=== PATIENT | female | born 1945 | race Caucasian/White ===

== ENCOUNTER 2017-12-31 08:30 | Outpatient (AMBR) | payer MEDICARE, MEDICAID, SELFPAY ==
--- NOTE | 2017-12-24 11:11 | PTNOTE_ITS ---
PT OP Initial Eval Patient Information Visit Reasons: left knee pain Medical Diagnosis: T84.84XA Z96.652 Treatment Dx #1: knee pain Start of Care: 12/24/17 Date of Onset: August 2017 Initial Assessment Subjective Pt is 72 yr old female who c/o L knee pain since bending down in August and hearing a loud pop. She reports the pain has been getting worse since then and she is wearing a knee brace. She walks limited distances 10' maximum. Pt lives with and can't do vacuuming, sweeping ADL's because of her back pain. 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 Pt is in bed 18-22 hours a day due to pain. PMH: smoker, OA everywhere, 4 CTS, trigger finger release, L knee TKA, R partial knee, heart palpitations Imaging: X-rays of knee negative Pt goal: to get my knee to not hurt when I walk or get out of bed. Objective L knee AROM: Flexion: 105 deg Extension: -5 deg SLR: 45 deg Strength: L quads 4-/5 limited by patella compression pain, hamstrings 4-/5 TTP: lateral joint line, lateral fat pad, inferior pole of patella Special testing: Anterior drawer: WNL Varus/valgus: slight gapping, no pain Patella compression: positive Squat: unable, stairs: unable KOS score: 56%, 100% is optimal Assessment Pt presents with pain about the lateral joint line and fat pad that may be consistent with ITB tenderness and myofascial pain. Ssx limit standing and walking tolerances along with squatting and bending. She spends most of the day in bed and isn't very active and it has been about 4 months since the pain started and is getting worse so pt may benefit from further diagnostic imaging if pain persists. Short Term and Mcfp Goals 1. Independent with HEP 2. Improved quad strength to 4+/5 3. Improved KOS score to 66% 4. Pt will ambulate x10' with <=4/10 knee pain. Treatment Plan 90 day POC in order to complete visits. Pt requires skilled therapy in order to increase strength, decrease pain and address aforementioned impairments. Rx may consist of Therex, Manual therapy, Neuromuscular re-education, Modalities as indicated-moist heat packs, ice packs, mechanical traction, estim Frequency and Duration 2x a week for 6 weeks Certification Dates: 12/24/17 to 03/24/18 Office Procedures PT Outpatient G-Codes Date of Service PT Date of Service: 12/24/17 G-Codes Walking & Moving Around Mobility Current Status G-Code: G8978: CK 40-60% Mobility Status G-Code: G8979: CJ 20-40% PT Procedures PT Date of Service: 12/24/17 OP PT Eval Mod Complex 30 minutes: Yes
--- NOTE | 2017-12-31 12:06 | PT.ODAYNRPT ---
PT Outpatient Daily Note Date of Service: December 31, 2017 OP Daily Note Visit Reasons: left knee pain Outpatient Physical Therapy Treatment Date: 12/31/17 Subjective: About the same as time of eval Objective: See F/S for therex MT: STM to distal L ITB x10' Assessment: High tissue irritability of distal ITB consistent with ITB friction syndrome. Plan: Continue per POC Length of Time (minutes) of Treatment: 30 Minutes Office Procedures PT Outpatient G-Codes Date of Service PT Date of Service: 12/24/17 G-Codes Walking & Moving Around Mobility Current Status G-Code: G8978: CK 40-60% Mobility Status G-Code: G8979: CJ 20-40% PT Procedures PT Date of Service: 12/24/17 OP PT Eval Mod Complex 30 minutes: Yes PT Procedures PT Date of Service: 12/31/17 Therapeutic Exercise 15 minutes: Yes Manual [employer] 15 minutes: Yes
== END 2017-12-31 09:30 | disposition home or self-care (01) ==
PROVIDERS: PCP Physician Assistant Medical; Referring Provider Physician Assistant Medical; Visit Provider Physician Assistant Medical
DX: I10 Essential (primary) hypertension (principal)
CPT/HCPCS: 97110; 97140; 97162; G8978; G8979

== ENCOUNTER 2018-01-09 08:30 | Outpatient (AMBR) | payer MEDICARE, MEDICAID, SELFPAY ==
--- NOTE | 2018-01-07 13:18 | PT.ODAYNRPT ---
PT Outpatient Daily Note Date of Service: January 07, 2018 OP Daily Note Visit Reasons: knee pain Outpatient Physical Therapy Treatment Date: 01/07/18 Subjective: Pt reports increased knee soreness after last visit. Today she points to the lateral hamstring tendon region as site of pain. Objective: See F/S for therex MT: STM of L lateral HS tendon region x5' Assessment: High tissue irritability of L distal HS tendon limits exercise and manual therapy tolerance. Plan: Continue per POC Length of Time (minutes) of Treatment: 30 Minutes Office Procedures PT Procedures PT Date of Service: 01/07/18 Therapeutic Exercise 30 minutes: Yes
--- NOTE | 2018-01-09 10:51 | PT.ODS1RPT ---
PT OP Progress/Discharge Note Date of Service: January 09, 2018 Progress Note/DC Note Progress Note/Discharge Note: DC Note Patient Information Visit Reasons: knee pain Medical Diagnosis: T84.84XA Z96.652 Service Continue Service or Discharge: Discharge Discharge Date: 01/09/18 Certification Date Certification Dates: 12/24-03/24/18 Status Subjective: Pt reports no change in knee ssx, just more pain after therapy visits. She continues to have high pain level in knee. Objective: L knee AROM: Flexion 105 deg Extension: -5 deg SLR: 45 deg TTP: distal ITB as it crosses joint line, ITB insertion, lateral hamstring tendon, pop fossa MT: STM to distal ITB x10' and hamstring tendon Assessment: Pt has attended 4/12 visits with limited progress with therapy goals. She has high tissue irritability of L distal HS tendon and ITB that limits exercise and manual therapy tolerance. Quad strength has not changed and she has not met the ambulatory goal of 10'. Ssx consistent with distal ITB and hamstring tendon tendinopathy. Pt recommends further diagnostic imaging of L knee. Plan: Pt is discharged back to provider for further workup. Office Procedures PT Outpatient G-Codes Date of Service PT Date of Service: 01/09/18 G-Codes Walking & Moving Around Mobility Status G-Code: G8979: CJ 20-40% Mobility DC Status G-Code: G8980: CK 40-60% PT Procedures PT Date of Service: 01/07/18 Therapeutic Exercise 30 minutes: Yes PT Procedures PT Date of Service: 01/09/18 Therapeutic Exercise 15 minutes: Yes Manual Autom[employer] Expert 15 minutes: Yes
== END 2018-01-31 23:59 ==
PROVIDERS: PCP Physician Assistant Medical; Referring Provider Physician Assistant Medical; Visit Provider Physician Assistant Medical
DX: I10 Essential (primary) hypertension (principal)
CPT/HCPCS: 97110; 97140; G8979; G8980